=== PATIENT | male | born 1965 | race Asian ===

== ENCOUNTER 2017-10-22 09:17 | Day surgery (SDC) | payer BC ==
[2017-10-21 12:40] VITALS: BMI 22.8
[2017-10-22] MEDS ORDERED: Bupivacaine/Epinephrine 0.25% 30 ML VIAL ONE ×2 (09:48→10:55)
[2017-10-22] MEDS ORDERED: CEFAZOLIN/Water 2 GM/20 ML SYRINGE ONE (09:50)
[2017-10-22] MEDS ORDERED: Fentanyl 250 MCG/5 ML VIAL ONE (09:50)
[2017-10-22] MEDS ORDERED: Ketorolac Tromethamine 30 MG/ML VIAL ONE (09:51)
[2017-10-22 09:58] LABS: #Basophils 0.1 thou/uL (0.0-0.2); #Eosinphils 0.1 thou/uL (0.0-0.7); #Lymphocytes 1.4 thou/uL (1.20-3.40); #Monocytes 0.3 thou/uL (0.11-0.59); #Neutrophils 3.1 thou/uL (1.40-6.50); %Basophils 1.4 % (0.0-1.0); %Eosinophils 1.7 % (0.0-10.0); %Lymphocytes 28.8 % (21.0-51.0); %Monocytes 6.8 % (0.0-10.0); %Neutrophils 61.3 % (42.0-75.0); Hemoglobin 15.5 g/dL (14.0-18.0); Mean Corpuscular HGB CONC 33.1 g/dL (32.0-36.0); Mean Corpuscular Hemoglobin 32.4 pg (27.0-31.0); Mean Platelet Volume 6.6 fL (7.4-10.4); Platelet Count 263 thou/uL (130-400); RBC Distribution Width 11.7 % (11.5-14.5); Red Blood Cell (RBC) Count 4.79 mill/uL (4.70-6.10)
[2017-10-22 10:15] LABS: Anion Gap 13 mmol/L (10-20); BUN (Urea Nitrogen) 19 mg/dL (8.4-25.7); Calc. Creatinine Clearance 79 mL/min (70-130); Calcium 10.1 mg/dL (7.8-10.44); Carbon Dioxide 28 mmol/L (22-29); Chloride 103 mmol/L (98-107); Estimated GFR-MDRD 75; Glucose 112 mg/dL (70-105); Potassium 3.9 mmol/L (3.5-5.1); Sodium 140 mmol/L (136-145)
[2017-10-22] MEDS ORDERED: ePHEDrine/0.9% NaCl/PF SYRINGE 50 mg/10 ml ONE (11:50)
[2017-10-22] MEDS ORDERED: PROPOFOL 200 MG/20 ML VIAL ONE (11:50)
[2017-10-22] MEDS ORDERED: Dexamethasone 20 MG/5 ML VIAL ONE ×2 (11:50)
[2017-10-22] MEDS ORDERED: Ondansetron HCl/PF 4 MG/2 ML Vial ONE (11:50)
[2017-10-22] MEDS ORDERED: Glycopyrrolate 0.2 MG/ML 5 ML SYRINGE ONE (11:50)
[2017-10-22] MEDS ORDERED: Lidocaine 1% PF 5 ML VIAL ONE (11:50)
--- NOTE | 2017-10-23 04:28 | OP ---
DATE OF PROCEDURE: 10/22/2017 PREOPERATIVE DIAGNOSES: Right inguinal hernia and right shoulder 10 7-cm lipoma. POSTOPERATIVE DIAGNOSES: Right inguinal hernia and a right shoulder 10 cm lipoma with finding of in direct right inguinal hernia and the lipoma in the right supraclavicular fossa was subfascial (below the platysma). SURGEON: Theodore Garrido M.D. ANESTHESIA: General endotracheal. INDICATIONS: The patient is a 52-year-old male. He presents with easily visible and palpable right inguinal hernia. He is taken to operating room at this time for repair. 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 PROCEDURE IN DETAIL: Informed consent was obtained. The patient was taken to the operating where ge neral endotracheal anesthesia obtained with the patient in supine position. A Cedeno catheter was sunny tristin, the abdomen was trimmed of hair, prepped with ChloraPrep, and draped in sterile fashion. Local anesthetic was infiltrated using 0.25% Marcaine with epinephrine in the supraumbilical location and a n 11 mm transverse incision was created through which a Veress needle was passed into the peritoneal cavity and pneumoperitoneum established using carbon dioxide up to a pressure of 15 months mmHg. An 11 mm trocar port site through the same incision laparoscopic camera was passed this port. Under dir ect vision, 2 additional 8 mm robotic ports were placed at the supraumbilical level on either side of midline. The robot was docked to the ports and the camera and the operation was continued from the console. I nitial examination within the abdomen revealed that there were omental adhesions to the left side of the abdominal wall. These were dissected primarily using blunt dissection. There was no apparent re ason for these adhesions. The left inguinal area was inspected and found to be without evidence of h ernia. The patient had an easily visible and fairly sizable indirect right inguinal hernia. A transverse incision was created in the peritoneum several centimeters proximal to the hernia defect . Preperitoneal dissection was carried out extending inferiorly. On the medial aspect, dissection w as carried down to the pubic tubercle and Corey's ligament. Laterally, the space was developed to a llow adequate room for the mesh patch. I then carefully dissected the hernia sac away from the cord structures, widely mobilized and the peritoneum off of the underlying vas deferens as well as the cor d vessels. There was a substantial cord lipoma and this was dissected away from the cord structures and resected. It was later removed at the end of the case through the 12 mm port. After dissecting the space, a large right 3DMax mesh patch was obtained and placed within the floor o f the inguinal canal, and secured in place with 3 interrupted sutures of 2-0 Vicryl. These were plac ed to the pubic tubercle, the anterior aspect of the mesh patch just lateral to the epigastric vessel s, and to the far lateral aspect of the mesh patch. The peritoneum was then closed with a running currie ture of 3-0 V-Loc suture. The fascial defect at the umbilical port site was closed with 0 Vicryl suture using a GraNee needle. All ports and instruments removed under direct vision. Pneumoperitoneum was carefully evacuated. Q uarter percent Marcaine with epinephrine was infiltrated at each port site and skin edges approximate d with 4-0 Monocryl subcuticular suture. Dermabond was placed externally. There had been negligible blood loss and no complications. Attention was then turned to his right anterior shoulder. This area was widely prepped with ChloraPr ep and draped in sterile fashion. Local anesthetic was infiltrated using 0.25% Marcaine with epineph rine. A transverse incision was created over the lipoma. Dissection was carried through skin and currie bcutaneous tissue and the platysma. The lipoma was well encapsulated and easily dissected along the medial aspect at the base of the neck. As dissection was continued laterally, it was found to be mor e snuggly invested near the acromion of the shoulder. I carefully dissected the entire lipoma removi ng it intact and passed off the field. Meticulous hemostasis was obtained with electrocautery. A 10 -Gib[place] fluted drain was placed within the base of the wound and brought out laterally and inferiorly and secured with 3-0 nylon suture. The platysma was closed with a running suture of 3-0 Vicryl. Sk in edges approximated with running subcuticular 4-0 Monocryl suture. Dermabond was placed externally . There were no complications. Sterile occlusive dressing was placed over the drain exit site. The patient tolerated the procedure well and was taken to recovery room in stable condition.
== END 2017-10-22 15:55 | disposition home or self-care (01) ==
LOC: SDC 09:17
PROVIDERS: ATTEND Specialist
PROC: 0JBD0ZZ Excision of Right Upper Arm Subcutaneous Tissue and Fascia, Open Approach (ICD-10-PCS; principal; 2017-10-22)
PROC: 0YU54JZ Supplement Right Inguinal Region with Synthetic Substitute, Percutaneous Endoscopic Approach (ICD-10-PCS; principal; 2017-10-22)
DX: K40.90 Unilateral inguinal hernia, without obstruction or gangrene, not specified as recurrent (principal); D17.79 Benign lipomatous neoplasm of other sites
CPT/HCPCS: 80048; 85025; 88304; C1781; J0131; J1100; J1885; J2001; J2405; J2704; J3010